=== PATIENT | female | born 1995 | race African-American/Black ===

== ENCOUNTER → 2018-10-23 13:30 | Outpatient (CLI) | payer OTHER ==
[~2018-10-23 13:30] MED LIST: TOPAMAX25 MG PO
== END | disposition home or self-care (01) ==
LOC: AMB 13:30
DX: Z04.1 Encounter for examination and observation following transport accident (principal)

== ENCOUNTER 2018-10-23 15:46 | Emergency (ER) | payer OTHER ==
[~2018-10-23] VITALS: Ht 144.8 cm; Wt 81.6 kg
[2018-10-23 15:50] VITALS: TEMP 98.1
[2018-10-23 16:26] LABS: PLATELET COUNT 356 K/uL (152-353)
[2018-10-23 16:34] LABS: POTASSIUM 3.7 mmol/L (3.6-5.2)
[2018-10-23 16:44] LABS: PARTIAL THROMBOPLASTIN TIME 29.8 SECONDS (24.5-33.6)
[2018-10-23 17:59] VITALS: BP 119/74
== END 2018-10-23 17:59 | disposition home or self-care (01) ==
LOC: ED 15:46
PROVIDERS: Hospitalist
DX: S20.212A Contusion of left front wall of thorax, initial encounter (principal); S20.211A Contusion of right front wall of thorax, initial encounter; S80.02XA Contusion of left knee, initial encounter; S90.32XA Contusion of left foot, initial encounter; V49.50XA Passenger injured in collision with unspecified motor vehicles in traffic accident, initial encounter
CPT/HCPCS: 80053; 81000; 81025; 82550; 85027; 85610; 85730; 93005; 96372; 99283; J1885; J2360

== ENCOUNTER 2018-11-24 09:39 | Outpatient (CLI) | payer OTHER | END 2018-11-24 19:41 | disposition home or self-care (01) | LOC: RAD 09:39 | DX: M62.838 Other muscle spasm (principal) ==

== ENCOUNTER 2020-03-28 08:57 | Outpatient (CLI) | payer OTHER | END 2020-03-28 23:42 | disposition home or self-care (01) | LOC: US 08:57 | PROVIDERS: ATTEND Nurse Practitioner Family | DX: N64.4 Mastodynia (principal) ==